=== PATIENT | female | born 1950 | race Caucasian/White ===

== ENCOUNTER 2019-09-06 17:55 | Emergency (ER) | payer MEDICARE, BC ==
[2019-09-06 18:04] VITALS: BP 133/76; PULSE 94
[2019-09-06] MEDS ORDERED: Ibuprofen 600 MG Tab PO ONE (18:24)
[2019-09-06] MEDS ORDERED: Oseltamivir 75 MG Cap PO ONE (18:24)
--- NOTE | 2019-09-06 18:29 | EDM.PDOC ---
ED HPI GENERAL MEDICAL PROBLEM - General Chief Complaint: Respiratory Problem Stated Complaint: dizzy hot diarrhea Time Seen by Provider: 09/06/19 18:29 Source of Information: Reports: Patient, Family (Daughter) History Limitations: Reports: No Limitations - History of Present Illness INITIAL COMMENTS - FREE TEXT/NARRATIVE: 69-year-old female presents to the ED acute onset of headache, body aches, nonproductive cough starting at noon today. That of a cough yesterday. Completely lost her appetite as well. Of note her was hospitalized yesterday with influenza A infection and is hopefully going to be released tomorrow. Apparently has responded very well to Tamiflu. Did have a flu shot as did her . She has multiple sclerosis and is weak already. Visibly she has influenza type A and will be treated as such. She is taken Tylenol 325 mg at home without any relief of fever or headache. Of note the patient has had 2 bouts of diarrhea as well since noon hour. Nausea or vomiting. Onset: Today, Sudden Onset Date: 09/06/19 Onset Time: 12:00 Duration: Hour(s): Location: Reports: Head ( Harsh nonproductive cough), Chest (Anthony myalgia.), Generalized, Other (Loss of appetite) Quality: Reports: Ache, Other (Aches all over.) Severity: Severe (8 out of 10) Improves with: Reports: None Worsens with: Reports: Movement Context: Reports: Sick Contact. Denies: Activity, Exercise, Lifting, Trauma, Other (Her '[facility] is at this time with influenza type a virus.) Associated Symptoms: Reports: Cough, cough w sputum, Fever/Chills, Headaches, Loss of Appetite, Malaise, Weakness. 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: Reports: Acetaminophen (325 mg about 2 hours ago) Generalized Pain Score (Numeric/FACES): 7 - Related Data Allergies Allergy/AdvReac Type Severity Reaction Status Date / Time sertraline HCl [From Zoloft] Allergy Diarrhea Verified 04/10/19 13:22 Home Meds: Home Meds Levothyroxine Sodium [Synthroid] 25 mcg PO DAILY 08/10/15 [History] atorvaSTATin Calcium [Atorvastatin Calcium] 20 mg PO DAILY 08/10/15 [History] buPROPion [Wellbutrin XL] 150 mg PO DAILY 08/10/15 [History] Oseltamivir [Tamiflu] 75 mg PO BID #7 cap 09/06/19 [Rx] Oseltamivir [Tamiflu] 75 mg PO Q12H #2 cap 09/06/19 [Rx] Past Medical History HEENT History: Reports: None Cardiovascular History: Reports: High Cholesterol, Hypertension Respiratory History: Reports: COPD, Pneumothorax Other Respiratory History: spontaneous pneumothorax in 1994 Gastrointestinal History: Reports: Colon Polyp Genitourinary History: Reports: None 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 Has multiple sclerosis as well. Psychiatric History: Reports: Depression Endocrine/Metabolic History: Reports: Hypothyroidism Hematologic History: Reports: Blood Transfusion(s), Other (See Below) Other Hematologic History: blood transfusion after hysterectomy - Infectious Disease History Infectious Disease History: Reports: Chicken Pox, Measles, Mumps - Past Surgical History Head Surgeries/Procedures: Reports: None HEENT Surgical History: Reports: Cataract Surgery GI Surgical History: Reports: Appendectomy Female Surgical History: Reports: Hysterectomy, Salpingo-Oophorectomy Neurological Surgical History: Reports: Lumbar Spine Other Neurological Surgeries/Procedures: hx back surgery Musculoskeletal Surgical History: Reports: Other (See Below) Other Musculoskeletal Surgeries/Procedures:: 5 surgeries for trigeminal neuralgia rt side of face Social & Family History - Family History Family Medical History: Noncontributory - Tobacco Use Smoking Status *Q: Current Every Day Smoker Years of Tobacco use: 50 Packs/Tins Daily: 0.5 - Caffeine Use Caffeine Use: Reports: Coffee - Recreational Drug Use Recreational Drug Use: No - Living Situation & Occupation Living situation: Reports: Occupation: Disabled ED ROS GENERAL - Review of Systems Review Of Systems: See Below Constitutional: Reports: Fever, Chills, Malaise, Weakness, Fatigue, Decreased Appetite HEENT: Denies: Throat Pain Respiratory: Reports: Cough, Sputum. Denies: Shortness of Breath Cardiovascular: Reports: No Symptoms Endocrine: Reports: Fatigue GI/Abdominal: Reports: Diarrhea (2 loose stools since our today.) : Reports: Frequency Musculoskeletal: Reports: Muscle Pain (Chronically) Skin: Reports: No Symptoms ( generalized myalgia.) Neurological: Reports: Difficulty Walking (Due to multiple sclerosis.), Weakness. Denies: Trouble Speaking Psychiatric: Reports: No Symptoms Hematologic/Lymphatic: Reports: No Symptoms ED EXAM, GENERAL - Physical Exam Exam: See Below Exam Limited By: No Limitations General Appearance: Alert, WD/WN, No Apparent Distress, Other (Her temperatures 37.3. Heart rate is 94 and sinus respect were destroyed sats are 95% on room air.) Eye Exam: Bilateral Eye: Normal Inspection Ears: Normal TMs Throat/Mouth: Normal Inspection, Normal Lips, Normal Oropharynx Head: Atraumatic, Normocephalic Neck: Normal Inspection, Supple, Non-Tender, Full Range of Motion. No: Carotid Bruit, Lymphadenopathy (L), Lymphadenopathy (R) Respiratory/Chest: Lungs Clear, Normal Breath Sounds (Mild tachypnea.), No Accessory Muscle Use, Respiratory Distress. No: Rhonchi, Wheezing Cardiovascular: Normal Peripheral Pulses, Regular Rate, Rhythm, No Edema, No Gallop, No Murmur, No Rub Peripheral Pulses: 2+: Posterior Tibial (L), Posterior Tibial (R), Dorsalis Pedis (L), Dorsalis Pedis (R) GI/Abdominal: Soft, Non-Tender, No Organomegaly, No Distention, No Mass, Pelvis Stable, Abnormal Bowel Sounds Back Exam: Normal Inspection, Full Range of Motion. No: CVA Tenderness (L), CVA Tenderness (R) Extremities: Normal Inspection, Normal Range of Motion, Other (Tender near quadriceps and lower back and neck muscles.) Neurological: Alert, Oriented, CN II-XII Intact, Normal Cognition, Sensory/ Motor Deficit. No: Normal Gait, Normal Reflexes, No Motor/Sensory Deficits, Inattentive, Confused Psychiatric: Normal Affect (Both lower extremities from multiple sclerosis.), Normal Mood Skin Exam: Warm, Dry, Intact, Normal Color, No Rash Course - Vital Signs Last Recorded V/S: Last Vital Signs Temp 37.3 C 09/06/19 18:03 Pulse 94 09/06/19 18:03 Resp 20 09/06/19 18:03 BP 133/76 09/06/19 18:03 Pulse Ox 95 09/06/19 18:03 - Orders/Labs/Meds Meds: Medications Discontinued Medications Generic Name Dose Route Start Last Admin Trade Name Freq PRN Reason Stop Dose Admin Ibuprofen 600 mg 09/06/19 18:24 09/06/19 18:33 Motrin PO 09/06/19 18:25 600 mg ONETIME ONE Administration Oseltamivir Phosphate 75 mg 09/06/19 18:24 09/06/19 18:33 Tamiflu PO 09/06/19 18:25 75 mg ONETIME ONE Administration - Radiology Interpretation Free Text/Narrative:: 69-year-old female presents to the ED with sudden onset of fever headache paroxysmal minimally productive cough loss of appetite and loose stools 2 since noon today. Of note her high was hospitalized yesterday with influenza type a virus. Clinically she has developed similar symptoms in spite of having the flu shot this year. She does suffer from multiple sclerosis and trigeminal neuralgia. Advised that these conditions will be exacerbated by the influenza virus causing increased weakness. She is certainly a candidate for immediate Tamiflu treatment and will receive initial dose in the ED +2 doses for tomorrow since apparently there are no drug stores going to be open tomorrow as it is holiday. Will be written for another 3 days of treatment or 7 tablets 75 mg strength. She was advised Motrin is much more effective at relieving fever and body ache and headache and Tylenol. Motrin 600 mg in the ED and will continue this every 6 hours until feeling better usually after the fourth dose of the Tamiflu. Hospital if not markedly improved in 48 hours time. Departure - Departure Time of Disposition: 18:55 Disposition: Home, Self-Care 01 Condition: Fair Clinical Impression: Influenza - Discharge Information *PRESCRIPTION DRUG MONITORING PROGRAM REVIEWED*: Not Applicable *COPY OF PRESCRIPTION DRUG MONITORING REPORT IN PATIENT DA: Not Applicable Prescriptions: Oseltamivir [Tamiflu] 75 mg PO Q12H #2 cap Oseltamivir [Tamiflu] 75 mg PO BID #7 cap Instructions: Influenza, Adult, [id number] Referrals: Chhaya Bose MD [Primary Care Provider] - Forms: ED Department Discharge Additional Instructions: Evaluation the emergency room tonight in regards to development of acute onset of fever headache and cough compatible with influenza virus. Her is already admitted to the hospital with influenza type A presumably you have influenza A virus infection as well. Is Motrin 600 mg every 6 hours to control fever body aches, and headache. Education is to be Tamiflu 75 mg tablet every 12 hours for the next 5 days to bring the influenza virus under prompt control. Usually you will start to feel better after the third or fourth tablet of Tamiflu. This means reduction of fever headache and body aches and return of appetite. Cough will persist for up to 14 days. You're considered contagious to others be a cough drop it's for the next 7 days. Sepsis Event Note - Evaluation Sepsis Screening Result: No Definite Risk - Focused Exam Vital Signs: Vital Signs Temp Pulse Resp BP Pulse Ox 09/06/19 18:03 37.3 C 94 20 133/76 95 Date Exam was Performed: 09/06/19 Time Exam was Performed: 19:12
[2019-09-06] MEDS ORDERED: Oseltamivir 75 MG Cap ONE (19:14)
== END 2019-09-06 19:15 | disposition home or self-care (01) ==
LOC: JD.ED 17:55
DX: J11.1 Influenza due to unidentified influenza virus with other respiratory manifestations (principal); E78.00 Pure hypercholesterolemia, unspecified; I10 Essential (primary) hypertension; J44.9 Chronic obstructive pulmonary disease, unspecified; E03.9 Hypothyroidism, unspecified; F17.210 Nicotine dependence, cigarettes, uncomplicated; Z79.890 Hormone replacement therapy; Z79.899 Other long term (current) drug therapy; Z88.8 Allergy status to other drugs, medicaments and biological substances
CPT/HCPCS: 99283; A9270

== ENCOUNTER 2023-08-30 09:40 | Emergency (ER) | payer MEDICARE, BC ==
[2023-08-30] MEDS ORDERED: Sodium Chloride 0.9% 10 ML Syringe FLUSH PRN (10:30)
[2023-08-30] MEDS ORDERED: Iopamidol 755 Mg/ML 100 ML Bottle IVPUSH ONE (10:40)
[2023-08-30] MEDS ORDERED: Sodium Chloride 0.9% 100 ML IV SCH (10:45)
[2023-08-30 10:55] LABS: BASOPHILS ABSOLUTE AUTO 0.1 K/mm3 (0.0-0.2); BASOPHILS PERCENT AUTO 1.7 % (0.0-1.0); EOSINOPHILS ABSOLUTE AUTO 0.1 K/mm3 (0.0-0.4); EOSINOPHILS PERCENT AUTO 3.3 % (0.0-6.0); HEMATOCRIT 39.7 % (37.0-47.0); HEMOGLOBIN 13.1 gm/dl (12.0-16.0); LYMPHOCYTES ABSOLUTE AUTO 1.5 K/mm3 (1.0-4.8); LYMPHOCYTES PERCENT AUTO 36.4 % (24.0-44.0); MEAN CORPUSCULAR HEMOGLOBIN 31.6 pg (28.0-32.0); MEAN CORPUSCULAR VOLUME 95.9 fl (83.0-99.0); MEAN PLATELET VOLUME 9.7 fl (9.4-12.3); MONOCYTES ABSOLUTE AUTO 0.3 K/mm3 (0.0-0.8); MONOCYTES PERCENT AUTO 6.9 % (0.0-8.0); NEUTROPHILS ABSOLUTE AUTO 2.2 K/mm3 (1.8-7.7); NEUTROPHILS PERCENT AUTO 51.7 % (41.0-71.0); PLATELET COUNT,PLT 187 K/mm3 (150-400); RED BLOOD CELL COUNT 4.14 M/mm3 (4.10-5.30); WHITE BLOOD CELL COUNT,WBC 4.23 K/mm3 (3.9-11.3)
[2023-08-30 11:21] LABS: A/G RATIO 1.1 (1-2); ALANINE AMINOTRANSFERASE,ALT 14 U/L (14-59); ALBUMIN 3.1 g/dl (3.4-5.0); ALKALINE PHOSPHATASE 45 U/L (46-116); ASPARTATE AMNIOTRANSFERASE,AST 12 U/L (15-37); BILIRUBIN TOTAL 0.4 mg/dL (0.2-1.0); BLOOD UREA NITROGEN,BUN 14 mg/dL (7-18); BUN/CREATININE RATIO 11.7 (14-18); C-REACTIVE PROTEIN <0.2 mg/dL (<1.0); CALCIUM 8.7 mg/dL (8.5-10.1); CARBON DIOXIDE,CO2 28 mEq/L (21-32); CHLORIDE,CL 107 mEq/L (98-107); CREATININE 1.2 mg/dL (0.55-1.02); EST CRCL DRUG DOSING (CG) 39.39 mL/min; ESTIMATED GFR 47 mL/min (>60); GLUCOSE RANDOM 115 mg/dL (70-99); INR 1.02; PROTEIN TOTAL,TP 5.9 g/dl (6.4-8.2); PROTHROMBIN TIME 10.9 SECONDS (9.7-12.0); SODIUM,NA 142 mEq/L (136-145)
[2023-08-30 11:22] LABS: PTT,PARTIAL THROMBOPLSTIN TIME 25.2 SECONDS (21.7-31.4)
[2023-08-30 14:16] VITALS: BP 136/67; PULSE 58
== END 2023-08-30 14:15 | disposition home or self-care (01) ==
LOC: JD.ED 09:40
DX: G50.0 Trigeminal neuralgia (principal); I10 Essential (primary) hypertension; E78.00 Pure hypercholesterolemia, unspecified; J44.9 Chronic obstructive pulmonary disease, unspecified; E03.9 Hypothyroidism, unspecified; Z88.8 Allergy status to other drugs, medicaments and biological substances; Z90.49 Acquired absence of other specified parts of digestive tract; Z90.710 Acquired absence of both cervix and uterus; Z79.899 Other long term (current) drug therapy
CPT/HCPCS: 36415; 70450; 70496; 70498; 80053; 85025; 85610; 85652; 85730; 86140; 99284; J3490

== ENCOUNTER 2024-02-16 20:47 | Emergency (ER) | payer BC, MEDICARE ==
[2024-02-16 22:40] VITALS: BP 150/79; PULSE 75
== END 2024-02-16 22:38 | disposition home or self-care (01) ==
LOC: JD.ED 20:47
DX: S00.83XA Contusion of other part of head, initial encounter (principal); G35 Multiple sclerosis; I10 Essential (primary) hypertension; E78.00 Pure hypercholesterolemia, unspecified; J44.9 Chronic obstructive pulmonary disease, unspecified; F17.210 Nicotine dependence, cigarettes, uncomplicated; W01.198A Fall on same level from slipping, tripping and stumbling with subsequent striking against other object, initial encounter; Y93.89 Activity, other specified; Z88.8 Allergy status to other drugs, medicaments and biological substances; Z79.890 Hormone replacement therapy; Z90.710 Acquired absence of both cervix and uterus
CPT/HCPCS: 70450; 70450-26; 99283

== ENCOUNTER 2024-05-05 16:38 | Emergency (ER) | payer MEDICARE ==
[2024-05-05] MEDS: cefTRIAXone 2 GM in Sodium Chloride 0.9% 100 ML IV ONE (17:30)
[2024-05-05 19:08] VITALS: BP 125/84; PULSE 76
== END 2024-05-05 19:00 | disposition home or self-care (01) ==
LOC: JD.ED 16:38
DX: N30.00 Acute cystitis without hematuria (principal); E78.00 Pure hypercholesterolemia, unspecified; I10 Essential (primary) hypertension; J44.9 Chronic obstructive pulmonary disease, unspecified; Z90.49 Acquired absence of other specified parts of digestive tract; Z90.710 Acquired absence of both cervix and uterus; F17.210 Nicotine dependence, cigarettes, uncomplicated; Z79.890 Hormone replacement therapy; Z79.899 Other long term (current) drug therapy; Z88.8 Allergy status to other drugs, medicaments and biological substances
CPT/HCPCS: 71045; 96365; 99284; J0696; J3490; 99283